=== PATIENT | female | born 1980 | race Caucasian/White ===

== ENCOUNTER → 2019-01-13 | Outpatient (CLI) | payer BC ==
[~2019-01-13] MED LIST: AMOXICILLIN500 MG PO; BIRTH CONTROL1 EAC1 PO; LOMOTIL 0.025 M1 TA1 PO; PREDNISONE20 MG PO; VICODIN ES 7501 TAB PO; ZITHROMAX Z PA250 MG PO; ZOFRAN ODT4 MG SL; ZYRTEC10 M2 PO
== END | disposition home or self-care (01) ==
LOC: US 01-03 11:00
DX: N89.8 Other specified noninflammatory disorders of vagina (principal); N92.6 Irregular menstruation, unspecified; N64.4 Mastodynia

== ENCOUNTER → 2020-04-28 | Outpatient (CLI) | payer SELFPAY | END | disposition home or self-care (01) | LOC: COVID19 14:38 | PROVIDERS: ATTEND Family Medicine | DX: U07.1 COVID-19 (principal); M79.10 Myalgia, unspecified site ==

== ENCOUNTER → 2023-01-04 | Day surgery (SDC) | payer SELFPAY ==
[~2023-01-04] VITALS: Ht 152.4 cm; Wt 63.5 kg
[~2023-01-04] MED LIST changes: +ACID REDUCER10 MG PO; +PROTONIX TR40 M1 PO
[2023-01-04 06:52] VITALS: BP 89/55
[2023-01-04 07:44] VITALS: BP 106/64
[2023-01-04 07:59] VITALS: BP 96/63
[2023-01-04 08:11] VITALS: BP 105/63
== END | disposition home or self-care (01) ==
LOC: SDC 01-01 08:00
PROVIDERS: ATTEND Surgery
DX: K21.00 Gastro-esophageal reflux disease with esophagitis, without bleeding (principal); K29.50 Unspecified chronic gastritis without bleeding

== ENCOUNTER → 2024-02-06 | Outpatient (CLI) | payer SELFPAY | END | disposition home or self-care (01) | LOC: LAB 12:21 | PROVIDERS: ATTEND Nurse Practitioner Family | DX: Z01.419 Encounter for gynecological examination (general) (routine) without abnormal findings (principal); N92.1 Excessive and frequent menstruation with irregular cycle; Z85.3 Personal history of malignant neoplasm of breast; Z87.42 Personal history of other diseases of the female genital tract ==

== ENCOUNTER → 2024-02-13 | Outpatient (CLI) | payer BC | END | disposition home or self-care (01) | LOC: US 02-08 02:09 | PROVIDERS: ATTEND Nurse Practitioner Family | DX: N92.1 Excessive and frequent menstruation with irregular cycle (principal); R92.30 Dense breasts, unspecified; Z85.3 Personal history of malignant neoplasm of breast; Z87.42 Personal history of other diseases of the female genital tract ==

== ENCOUNTER → 2024-08-08 | Outpatient (CLI) | payer BC ==
[2024-08-08 11:02] LABS: BASO # 0.1 10*3/uL (0.0-0.1); BASO % 1.5 % (0.0-1.0); EOS # 0.3 10*3/uL (0.0-0.4); EOS % 5.7 % (1.0-4.0); HEMATOCRIT 40.1 % (37.0-47.0); MEAN CELL VOLUME 88.1 fl (81.0-99.0); MEAN CORPUSCULAR HGB 28.6 pg (27.0-31.0); MEAN CORPUSCULAR HGB CONC 32.4 g/dl (33.0-37.0); MEAN PLATELET VOLUME 11.4 fl (9.6-12.3); MONO # 0.5 10*3/uL (0.1-1.0); MONO % 10.3 % (3.0-9.0); NEUT # 2.4 10*3/uL (2.3-7.9); NEUT % 53.1 % (47.0-73.0); PLATELET COUNT AUTOMATED 215 10*3/uL (130-400); RED BLOOD COUNT 4.55 10*6/uL (4.10-5.10); RED CELL DISTRI WIDTH 13.2 % (0-14.5); WHITE BLOOD COUNT 4.6 10*3/uL (4.8-10.8)
[2024-08-08 11:26] LABS: ALKALINE PHOSPHATASE 43 U/L (46-116); BUN 13 mg/dl (9-23); CHLORIDE 104 mmol/L (98-107); CHOLESTEROL 169 mg/dL (<200); LDL CHOLESTEROL 115 mg/dL (9-159); POTASSIUM 4.1 mmol/L (3.4-5.1); SGPT/ALT 12 U/L (5-49); TOTAL PROTEIN 7.5 gm/dL (6.0-8.0); TRIGLYCERIDES 33 mg/dl (<150)
== END | disposition home or self-care (01) ==
LOC: LAB 09:49
PROVIDERS: ATTEND Nurse Practitioner Family
DX: R53.83 Other fatigue (principal); K29.50 Unspecified chronic gastritis without bleeding